=== PATIENT | female | born 1965 | race Caucasian/White ===

== ENCOUNTER 2023-10-28 13:13 | Outpatient (CLI) | payer OTHER, SELFPAY | END 2023-10-28 13:14 | disposition home or self-care (01) | PROVIDERS: Visit Provider Obstetrics & Gynecology | DX: Z13.220 Encounter for screening for lipoid disorders (principal); R63.5 Abnormal weight gain | CPT/HCPCS: 80061; 84443 ==

== ENCOUNTER 2023-12-21 15:08 | Outpatient (CLI) | payer OTHER, SELFPAY ==
--- NOTE | 2023-12-21 15:20 | CRLHL7_ITS ---
For Patients: As a result of the Cures Act, medical imaging exams and procedure reports are released immediately into your electronic medical record. You may view this report before your referring provider. If you have questions, please contact your health care provider. BILATERAL SCREENING MAMMOGRAM WITH COMPUTER-AIDED DETECTION AND TOMOSYNTHESIS TECHNIQUE: CC and MLO views were obtained. These mammographic images have been obtained using full-field digital technique. These mammographic images were interpreted with the benefit of computer-aided detection. Breast Tomosynthesis was used in this interpretation. COMPARISON FILM: 05/09/20, 05/04/19. FINDINGS: There are scattered areas of fibroglandular density IMPRESSION: There is no radiographic evidence for malignancy. ASSESSMENT: BI-RADS Category 1: Negative RECOMMENDATION: Routine screening mammogram in 1 year. A lay language report of this examination will be provided to the patient. BEATRIZ GOMES M.D. Diagnostic/Nuclear Medicine Radiologist [email or web address] TAHMINA:[email or web address] Transcribed: 1:24 p.mChayito powers/Dictated by: Beatriz Gomes MD @ 12/24/2023 9:01:00 AM (Electronically Signed)
== END 2023-12-21 15:09 | disposition home or self-care (01) ==
LOC: MAMMO 15:09
PROVIDERS: Visit Provider Obstetrics & Gynecology
DX: Z12.31 Encounter for screening mammogram for malignant neoplasm of breast (principal)
CPT/HCPCS: 77063; 77067

== ENCOUNTER 2024-11-02 13:14 | Outpatient (CLI) | payer OTHER, SELFPAY | END 2024-11-02 13:15 | disposition home or self-care (01) | LOC: NFLDREF 13:15 | PROVIDERS: Visit Provider Obstetrics & Gynecology | DX: E78.00 Pure hypercholesterolemia, unspecified (principal) | CPT/HCPCS: 80061 ==

== ENCOUNTER 2025-01-24 15:26 | Outpatient (CLI) | payer OTHER, SELFPAY ==
--- NOTE | 2025-01-24 15:40 | CRLHL7_ITS ---
For Patients: As a result of the Century Cures Act, medical imaging exams and procedure reports are released immediately into your electronic medical record. You may view this report before your referring provider. If you have questions, please contact your health care provider. INDICATION: BILATERAL SCREENING MAMMOGRAM, ASYMPTOMATIC 59 Y/O FEMALE COMPARISON: 12/21/2023, 05/09/2020 TECHNIQUE: Digital mammogram in CC and MLO projections including computer-aided detection (CAD) and tomosynthesis. BREAST COMPOSITION: There are scattered areas of fibroglandular density. FINDINGS: No suspicious findings. ASSESSMENT: BI-RADS 1 Negative RECOMMENDATION: Annual screening mammogram. A lay language report of this examination will be provided to the patient. Dictated by: Norman Tong MD @ 01/25/2025 09:46:53 (Electronically Signed)
== END 2025-01-24 15:27 | disposition home or self-care (01) ==
LOC: MAMMO 15:27
PROVIDERS: Visit Provider Obstetrics & Gynecology
DX: Z12.31 Encounter for screening mammogram for malignant neoplasm of breast (principal)
CPT/HCPCS: 77063; 77067